=== PATIENT | female | born 1980 | race Caucasian/White ===

== ENCOUNTER → 2020-07-05 | Outpatient (CLI) | payer BC ==
[2020-07-05 11:04] LABS: HEMOGLOBIN 13.3 gm/dl (12.3-15.3); RED BLOOD COUNT 5.02 M/UL (4.00-5.10); WHITE BLOOD COUNT 8.7 K/UL (4.5-11.0)
[2020-07-06 07:11] LABS: RHEUMATOID ARTHRITIS FACTOR <10.0 IU/mL (0.0-13.9); VITAMIN D, 25-HYDROXY 21.6 ng/mL (30.0-100.0)
[2020-07-07 00:07] LABS: CCP ANTIBODIES IGG/IGA 5 units (0-19)
== END ==
LOC: LAB 09:53
PROVIDERS: Nurse Practitioner Family
DX: D89.9 Disorder involving the immune mechanism, unspecified (principal); M25.50 Pain in unspecified joint; R76.8 Other specified abnormal immunological findings in serum
CPT/HCPCS: 36415; 81001; 82570; 83520; 84156; 84439; 84443; 85025; 85652; 86140; 86200; 86431